=== PATIENT | male | born 1995 | race Caucasian/White ===

== ENCOUNTER 2018-04-29 06:44 | Emergency (ER) | payer OTHER, SELFPAY ==
--- NOTE | 2018-04-29 07:57 | RAD ---
LEFT ELBOW 4 VIEWS: Date: 04/29/18 PROVIDED CLINICAL HISTORY: Foreign body. FINDINGS: There is a rectangular focus of increased density present at the radial/posterior aspects of the prox imal forearm, compatible with the provided clinical history of foreign body. This measures about 7.0 cm maximally. Associated adjacent soft tissue gas and soft tissue swelling. No evidence for fracture. No evidence for elbow joint capsular distention or intraarticular gas. IMPRESSION: Foreign body as above. POS: [facility]NESTO
[2018-04-29] MEDS ORDERED: Lidocaine 1% w/Epinephrine 1:100K 20 ML VIAL ONE (09:04)
--- NOTE | 2018-04-29 10:18 | OP ---
DATE OF PROCEDURE: 04/29/2018 ER AND PROCEDURE NOTE HISTORY OF PRESENT ILLNESS: Mr. Forbes is a 22-year-old right-handed white male, who was wrestling with a friend and hit his elbow into a glass, shard of glass entered into the left elbow on the posterior medial aspect. He was initially taken to [facility], where one fragment of the glass was removed. There was an 8 cm long fragment of glass that was still in the elbow. He was transferred here. The patient has no neurologic complaints in the left forearm or hand. DESCRIPTION OF PROCEDURE: One end of the glass was palpable and was slightly tenting the skin on the lateral aspect of the elbow. This area was prepped with Betadine. 1% lidocaine with Marcaine was then used to infiltrate the area. The area was then draped. A 1-1/2 cm incision was made over the piece of glass and the whole piece of glass was removed intact. The patient was able to move the elbow without pain. The lateral wound was then closed using 4-0 chromic. Three lacerations on the posterior medial aspect of the elbow were then prepped, 1% lidocaine with epinephrine was used as local anesthetic. These wounds were cleansed with Betadine and normal saline and then closed using the 4-0 chromic. Sterile dressing was applied and the patient was discharged. DISCHARGE MEDICATIONS: 1. Bactrim DS one p.o. b.i.d. #10. 2. Tylenol No. 4 one every 6 hours as needed for pain #40. DISCHARGE INSTRUCTIONS: Follow up in my office in one week or nine days. Job ID: [id number]
== END 2018-04-29 10:14 | disposition home or self-care (01) ==
LOC: ERS 06:44
DX: S51.022A Laceration with foreign body of left elbow, initial encounter (principal); F17.200 Nicotine dependence, unspecified, uncomplicated; W25.XXXA Contact with sharp glass, initial encounter
CPT/HCPCS: 10120; J2001